=== PATIENT | male | born 1995 | race Two or more races ===

== ENCOUNTER 2023-08-08 11:03 | Inpatient (IN) ==
--- NOTE | 2023-08-08 11:14 | Emergency Department Note ---
Impression & Plan Altered mental status, Delirium due to general medical condition ED Provider Note Name: MIN VARGHESE Age: 28 Sex: Male Arrives Via: Ambulance Informant: EMS and half-way staff. Patient poor historian ED Provider: Wm Pascal MD Chief Complaint: agitation Impression: As per impressions above Medical Decision Makin-year-old male with unknown past medical history other than alcoholism arrives from [facility] half-way for evaluation of worsening agitation and hallucinations. Per EMS patient felt warm but there was never a fever documented or obtained. Patient has however been quite agitated and hallucinating at the present and for EMS. On arrival patient is relatively agitated was given Ativan with vast improvement. He was also given some IV fluids and banana bag given the alcohol history. He has been incarcerated for the last 2 weeks and reportedly had been on a benzo for about a week before being taken off it. He has been in isolation in the medical [facility] at [facility] where they note he is somewhat beyond their capabilities currently. He had been to an ER 2 days ago but discharged back to the half-way. Taken to this facility due to continued concerns. Due to altered mental status extensive workup obtained including CT head labs chest x-ray. No acute concerning findings found. Following Ativan blood pressure improved significantly. Patient seems much calmer he is answering yes no to questions. He has full range of motion head and neck without any nuchal rigidity. I do not feel patient has meningitis. Without neurodeficits per se would hold off on MRI in ER. He does not have any clear evidence of infectious etiology at this time and without an actual temperature do not feel starting antibiotics would be appropriate at this time either. Cultures were sent based on initial reports of possible fever by EMS. Patient is significantly improved however with ongoing symptoms for the last 2 weeks and exceeding abilities of [facility] half-way will need hospitalization here at this point. My suspicion is that this is still related somehow to withdrawal from likely heavy alcohol use prior to being in half-way given no other clear episode though it is a bit unusual that this is ongoing for last 2 weeks. Triage/Nursing Notes reviewed by Me Differential:Infection, hypoglycemia, electrolyte abnormalities, overdose, toxicologic, cardiac sources, intracerebral event, neurologic, trauma, as well as other pathologies. Vital Signs: reviewed and remarkable for no significant abnormalities Interventions: ativan 2mg iv, nss bolus, banana bag Labs:ED labs Reviewed by me and remarkable for no significant abnormalities Imaging:CT of the head without contrast as per my informal interpretation reveals no intracranial hemorrhage or mass effect. Confirmed by radiologist. 1 view chest x-ray as per my interpretation mild atelectasis bilateral lower lungs no infiltrate or effusion otherwise. EKG:As per my interpretation. Indication weakness. Normal sinus rhythm at 95 bpm with QTc of 435. QRS is normal. No ectopy nor ischemia. No previous for comparison. Cardiac/Tele Monitoring: Cardiac Monitoring: An Order was placed for continuous cardiac monitoring. The monitor shows a rate of 80 with a normal sinus rhythm. Consults:Dr Hinojosa hospitalist Plan: Disposition:Hospitalization. Condition: Good History of Present Illness: 28-year-old male arrives from [facility] facility. Patient has been at the facility for the last 2 weeks. He arrived heavily intoxicated and they have been managing his alcohol withdrawal there. He had been on apparently large doses of benzos up into the last few days when they were stopped. Patient's had worsening hallucinations, agitation, aggressiveness. He originally was speaking fluent Greenlandic but has not been speaking the last few days. He was taken to [facility] 48 hours ago and discharged according to security staff that arrived with patient. Unclear workup and interventions at that time. Due to worsening mental status was taken to the ER here for further evaluation. According to EMS patient felt warm though did not have a fever and route. No intervention prior to arrival. Per EMS patient has not had any benzos in the last 2 days. Patient is denying any headache, chest pain, difficulty breathing, pain through simple yes no her head none communication. No further review of systems is really able to be obtained. Past Medical History: Alcoholism. Home Medications: Multivitamin Allergies: Unknown Vitals:Blood Pressure: 156/100, Pulse 104, RR 22, T 36.7C, O2 98% on RA Physical Exam: GENERAL: Patient is agitated appearing and in mild distress. Somewhat diaphoretic RESPIRATORY: No dyspnea. Clear to auscultation and equal bilaterally. CARDIOVASCULAR: Tachy.No murmur appreciated. GASTROINTESTINAL: Abdomen soft, non-tender, no peritonitis. EXTREMITIES: Normal motion all extremities, no cyanosis, no edema. NEUROLOGIC: Patient agitated does periodically nod or answer yes/no questions, moving all extremities. No focal neurologic deficits appreciated SKIN: No rash, no jaundice, no diaphoresis. PSYCH: Unable to obtain GCS: 15 ED Course: Times/Reassessments: Significant improvement after IV fluids and Ativan. Does answer some better questions. Wm Pascal MD Past Med/Surg History Problem List (Updated 08/08/23 @ 17:22 by Wm Pascal MD) Delirium due to general medical condition (Acute) Altered mental status (Acute) Social History Smoking Status: Unknown if ever smoked Feels Safe at Home: Yes Allergies Allergies Allergy/AdvReac Type Severity Reaction Status Date / Time No Known Allergies Allergy Unverified 08/08/23 14:40 Home Meds Home Medications Medication Instructions Recorded Confirmed folic acid 1 mg tablet 1 mg PO DAILY 08/08/23 08/08/23 vitamin B complex 1 tab PO DAILY 08/08/23 08/08/23 Results & Data (ED) Vital Signs Vital Signs - 24 hr 08/08/23 11:03 08/08/23 11:03 08/08/23 12:02 Temperature 36.7 C Temperature Source Temporal Artery Scan Pulse Rate 78 79 Pulse Rate from SpO2 Sensor Respiratory Rate 18 Respiratory Effort / Characteristics Non-Labored Respiratory Depth Normal Respiratory Pattern Regular Blood Pressure 135/85 Blood Pressure Mean 101 Pulse Oximetry 98 98 Oxygen Delivery Method Room Air Room Air Sepsis Recent Fever Within 48 Hours No Sepsis New/Unexplained Change in Mental Status N/A Sepsis Action Taken by Nursing No Action Required 08/08/23 13:06 08/08/23 15:00 08/08/23 15:05 Temperature Temperature Source Pulse Rate 69 85 95 H Pulse Rate from SpO2 Sensor 68 Respiratory Rate 18 23 Respiratory Effort / Characteristics Respiratory Depth Respiratory Pattern Blood Pressure 98/67 L 129/74 Blood Pressure Mean 77 92 Pulse Oximetry 94 95 Oxygen Delivery Method Room Air Sepsis Recent Fever Within 48 Hours Sepsis New/Unexplained Change in Mental Status Sepsis Action Taken by Nursing Laboratory Data 08/08/23 12:21 08/08/23 12:21 Lab Results 08/08/23 08/08/23 Range/Units 12:21 Unknown WBC 6.35 (4.8-10.8) K/ul RBC 4.48 L (4.70-6.10) M/uL Hgb 13.6 L (14.0-18.0) g/dl Hct 39.3 L (42.0-52.0) % MCV 87.7 (80.0-100.0) fL MCH 30.4 (25.0-34.0) pg MCHC 34.6 (32.0-36.0) g/dL RDW Std Deviation 37.2 (36.4-46.3) fL RDW Coeff of Kimber 11.7 (11.5-14.5) % Plt Count 142 (130-400) K/uL MPV 12.5 H (9.4-12.4) fL Immature Gran % (Auto) 0.0 % Neut % (Auto) 70.8 % Lymph % (Auto) 23.5 % Iron % (Auto) 4.6 % Eos % (Auto) 0.3 % Baso % (Auto) 0.8 % Neut # (Auto) 4.50 (1.40-6.50) K/uL Lymph # (Auto) 1.49 (1.20-3.40) K/uL Iron # (Auto) 0.29 (0.11-0.59) K/uL Eos # (Auto) 0.02 (0.00-0.50) K/uL Baso # (Auto) 0.05 (0.00-0.20) K/uL Immature Gran # (Auto) 0.00 L (0.01-0.20) K/uL PT 12.4 H (9.0-12.0) Seconds INR 1.2 H (0.9-1.1) Sodium 140 (136-145) mmol/L Potassium 3.7 (3.5-5.1) mmol/L Chloride 107 (98-107) mmol/L Carbon Dioxide 27 (21-32) mmol/L Anion Gap 6 (3-11) BUN 11 (6-23) mg/dl Creatinine 0.63 (0.6-1.4) mg/dl Est Cr Clr Drug Dosing 192.2 ml/min Est GFR ( Amer) > 150.0 ml/min Est GFR (Non-Af Amer) 132.2 ml/min BUN/Creatinine Ratio 17.5 (10-20) Glucose 95 (70-99(Fasting)) mg/dl Lactate 1.1 (0.4-2.0) mmol/L Calcium 9.7 (8.6-10.3) mg/dl Magnesium 2.1 (1.7-2.4) mg/dl Total Bilirubin 0.9 (0.2-1.0) mg/dl Direct Bilirubin 0.2 (0-0.2) mg/dl AST 21 (13-39) U/L ALT 22 (7-52) U/L Alkaline Phosphatase 60 (34-104) U/L Total Creatine Kinase 66 (30-223) U/L Troponin I High Sens < 2.3 (0-20) pg/ml Total Protein 7.5 (6.0-8.3) gm/dl Albumin 4.2 (3.4-5.0) gm/dl Lipase 17 (11-82) U/L Procalcitonin < 0.02 (0-0.5) ng/ml Ethyl Alcohol mg/dL < 10.0 (<10.0) mg/dl SARS-CoV-2 (PCR) NEGATIVE (Negative) Influenza Type A (PCR) Negative (Neg) Influenza Type B (PCR) Negative (Neg) RSV (RT-PCR) Negative (Neg) Administered Medications Thiamine HCl 200 mg/ Sodium (Chloride) 52 mls @ 210 mls/hr IV [facility] Stop: 09/07/23 15:14 Last Infusion: 08/08/23 16:26 Dose: Infused Documented By: Admin: 08/08/23 16:07 Dose: 210 mls/hr Documented By: ERICA Folic Acid 1 mg/ Syringe 10 mls @ 5 mls[facility] Stop: 09/07/23 15:14 Last Admin: 08/08/23 16:07 Dose: 5 mls/min Documented By: ERICA Discontinued Medications Gabapentin (Gabapentin 600 Mg Tab) 1,200 mg PO NOW ONE Stop: 08/08/23 15:01 Last Admin: 08/08/23 15:37 Dose: 1,200 mg Documented By: ERICA Sodium Chloride (Nss) 1,000 mls @ 999 mls/hr IV .Q1H1M ONE Stop: 08/08/23 12:11 Last Infusion: 08/08/23 16:26 Dose: Infused Documented By: Admin: 08/08/23 12:40 Dose: 999 mls/hr Documented By: JEISON Multivitamins 10 ml/ Thiamine HCl 100 mg/ Folic Acid 1 mg/Sodium Chloride 1,011.2 mls @ 500 mls/hr IV .Q2H2M ONE Stop: 08/08/23 13:12 Last Infusion: 08/08/23 15:14 Dose: Infused Documented By: Admin: 08/08/23 13:11 Dose: 500 mls/hr Documented By: JEISON Lorazepam (Lorazepam 1 Mg/1 Ml Syr Ed Inj Use) 2 mg IV ONE STA Stop: 08/08/23 11:12 Last Admin: 08/08/23 11:20 Dose: 2 mg Documented By: RAMONITA Imaging Data Radiologist's Impression: Head CT 08/08/23 11:11 CT head/brain wo con CLINICAL HISTORY: 28 years-old Male with ams. Acutely altered mental status TECHNIQUE: Multiple axial CT images of the head were obtained without contrast. A dose lowering technique was utilized adhering to the principles of ALARA. CT DOSE: 547.75 mGy.cm COMPARISON: None. FINDINGS: No acute intracranial hemorrhage, midline shift, intracranial mass, hydrocephalus, territorial ischemia or abnormal extra-axial collection. The calvarium is intact. The paranasal sinuses, mastoid air cells, and middle ear cavities are clear. IMPRESSION: No acute intracranial abnormality. ACT 112: Negative or not required by law. The above report was generated using voice recognition software. It may contain grammatical, syntax or spelling errors. Electronically signed by: Brant Alvarez M.D. 08/08/2023 1:17 PM Chest X-Ray 08/08/23 11:12 XR chest 1V portable HISTORY: 28 years-old Male agitation, fever acute fever with altered mental status COMPARISON: None TECHNIQUE: AP view of the chest FINDINGS: Cardiac silhouette is upper limits of normal in size.. No pneumothorax, or pleural effusion. The lungs are clear. Mild mid thoracic dextroscoliosis. IMPRESSION: No acute process. ACT 112: Negative or not required by law. The above report was generated using voice recognition software. It may contain grammatical, syntax or spelling errors. Electronically signed by: Brant Alvarez M.D. 08/08/2023 11:47 AM Discharge Plan Visit Data Chief Complaint: Altered Mental Status Stated Complaint: AMS ED Provider: Wm Pascal Discharge Problem: Altered mental status, Delirium due to general medical condition Forms Stand Alone Forms: Bill[employer]rink Prescriptions Prescriptions: No Action vitamin B complex [Vitamin B-100] Tablet 1 tab PO DAILY folic acid 1 mg Tablet 1 mg PO DAILY Referrals Referrals: PCP,NO [Physician] -
[2023-08-08] MEDS: LORazepam 1 MG/1 ML SYR ED Inj Use IV STA (11:20)
--- NOTE | 2023-08-08 11:48 | XRay Report ---
XR chest 1V portable HISTORY: 28 years-old Male agitation, fever acute fever with altered mental status COMPARISON: None TECHNIQUE: AP view of the chest FINDINGS: Cardiac silhouette is upper limits of normal in size.. No pneumothorax, or pleural effusion. The lung s are clear. Mild mid thoracic dextroscoliosis. IMPRESSION: No acute process. ACT 112: Negative or not required by law. The above report was generated using voice recognition software. It may contain grammatical, syntax o r spelling errors. Electronically signed by: Brant Alvarez M.D. 08/08/2023 11:47 AM
[2023-08-08 12:38] LABS: Influenza A virus by PCR Negative (Neg); Influenza B virus by PCR Negative (Neg); RSV by PCR Negative (Neg); SARS CoV2 RNA(COVID-19) Ceph NEGATIVE (Negative)
[2023-08-08] MEDS: SODIUM CHLORIDE 0.9% 1,000 ML IV ONE (12:40)
[2023-08-08 12:41] LABS: Basophils # (auto) 0.05 K/uL (0.00-0.20); Basophils % (auto) 0.8 %; Eosinophils # (auto) 0.02 K/uL (0.00-0.50); Eosinophils % (auto) 0.3 %; Hematocrit (blood only) 39.3 % (42.0-52.0); Hemoglobin 13.6 g/dl (14.0-18.0); Lymphocytes # (auto) 1.49 K/uL (1.20-3.40); Lymphocytes % (auto) 23.5 %; Mean Corpuscular Hemoglobin 30.4 pg (25.0-34.0); Mean Corpuscular Hgb Conc 34.6 g/dL (32.0-36.0); Mean Corpuscular Volume 87.7 fL (80.0-100.0); Mean Platelet Volume 12.5 fL (9.4-12.4); Monocytes # (auto) 0.29 K/uL (0.11-0.59); Monocytes % (auto) 4.6 %; Neutrophils % (auto) 70.8 %; Platelet Count 142 K/uL (130-400); RDW Coefficient of Variation 11.7 % (11.5-14.5); RDW Standard Deviation 37.2 fL (36.4-46.3); Red Blood Count 4.48 M/uL (4.70-6.10); White Blood Count 6.35 K/ul (4.8-10.8)
[2023-08-08 12:57] LABS: Alanine Aminotransferase 22 U/L (7-52); Albumin Level 4.2 gm/dl (3.4-5.0); Alkaline Phosphatase 60 U/L (34-104); Anion Gap 6 (3-11); Aspartate Aminotransferase 21 U/L (13-39); BUN Creatinine Ratio 17.5 (10-20); Bilirubin Direct 0.2 mg/dl (0-0.2); Bilirubin,Total 0.9 mg/dl (0.2-1.0); Blood Urea Nitrogen 11 mg/dl (6-23); Calcium 9.7 mg/dl (8.6-10.3); Carbon Dioxide 27 mmol/L (21-32); Chloride 107 mmol/L (98-107); Creatine Kinase 66 U/L (30-223); Creatinine Clr Calc Pharmacy 192.2 ml/min; Est GFR (African American) > 150.0 ml/min; Est GFR (Non-African American) 132.2 ml/min; Glucose 95 mg/dl (70-99(Fasting)); Lipase 17 U/L (11-82); Magnesium 2.1 mg/dl (1.7-2.4); Potassium 3.7 mmol/L (3.5-5.1); Sodium 140 mmol/L (136-145); Total Protein 7.5 gm/dl (6.0-8.3)
[2023-08-08 13:04] LABS: Troponin I High Sensitivity < 2.3 pg/ml (0-20)
[2023-08-08] MEDS: MULTI-VITAMIN INFUSION 10 ML, THIAMINE HCL 100 MG, FOLIC ACID 1 MG in SODIUM CHLORIDE 0... IV ONE (13:11)
[2023-08-08 13:18] LABS: INR 1.2 (0.9-1.1); Prothrombin Time 12.4 Seconds (9.0-12.0)
--- NOTE | 2023-08-08 13:19 | CT Scan Report ---
CT head/brain wo con CLINICAL HISTORY: 28 years-old Male with ams. Acutely altered mental status TECHNIQUE: Multiple axial CT images of the head were obtained without contrast. A dose lowering tech nique was utilized adhering to the principles of ALARA. CT DOSE: 547.75 mGy.cm COMPARISON: None. FINDINGS: No acute intracranial hemorrhage, midline shift, intracranial mass, hydrocephalus, territorial ischem ia or abnormal extra-axial collection. The calvarium is intact. The paranasal sinuses, mastoid air cells, and middle ear cavities are clear . IMPRESSION: No acute intracranial abnormality. ACT 112: Negative or not required by law. The above report was generated using voice recognition software. It may contain grammatical, syntax o r spelling errors. Electronically signed by: Brant Alvarez M.D. 08/08/2023 1:17 PM
[2023-08-08] MEDS ORDERED: Ativan IV Alcohol Withdrawal--Active Protocol IV PRN (15:00)
[2023-08-08] MEDS ORDERED: LORazepam 3 MG in SYRINGE 1.5 ML IV PRN (15:00)
[2023-08-08] MEDS ORDERED: GABAPENTIN 1200MG ALCOHOL WITHDRAWAL LOAD PO STA (15:00)
[2023-08-08] MEDS ORDERED: LORazepam 1 MG in SYRINGE 0.5 ML IV PRN (15:00)
[2023-08-08] MEDS ORDERED: ONDANSETRON INJ 2 MG/ML 2 ML VIAL IV PRN (15:02)
[2023-08-08] MEDS ORDERED: ALUMINUM/MAGNESIUM SUSP 30 ML UDC PO PRN (15:02)
--- NOTE | 2023-08-08 15:19 | History & Physical Report ---
Date of Service August 08, 2023 Assessment & Plan (1) Altered mental status: Plan Toxic versus metabolic encephalopathy History of alcohol abuse Abrupt discontinuation of diazepam recently Alc vs benzos withdrawal Patient was being treated for alcohol abuse with folic acid/thiamine/meclizine/diazepam 10 mg twice daily at a [facility] [place] [facility]. Patient was [place] to [facility] 2 [facility] ago at which point his diazepam was stopped abruptly. Patient was continuing on the thiamine and folic acid. Patient was evaluated at [facility] on Thursday for AMS at which point alcohol level was negative, benzos was positive, CT head and CT of abdomen pelvis was negative per RN at [facility]. Admitting CT head and CXR with no acute finding. Will get toxicology screen, monitor for fever -- consider LP and antibiotic if febrile.Will send blood culture. Per ED physician, there was concern of warmth noted by EMS/temperature was never recorded, temperature recorded multiple times in the ED was afebrile. LINDSAY S protocol, IV thiamine, IV folic acid, IV fluid with dextrose. N.p.o. until mentation improves, clear liquid diet then advance diet as tolerated as mentation improves. Continue telemetry monitoring. DVT prophylaxis: Heparin subcu Full code Further medication/past history/current history to be elucidated by oncoming provider once patient is more awake. History of Present Illness Chief Complaint: ams Primary Care Provider: Des Noble, DO 28-year-old male with unknown PMH but was being managed for alcohol abuse [facility] [place] [facility]. Patient is altered at bedside exam, information gathered from guards at bedside, ER physician, chart review, phone call with medical [facility]/spoke with patient's nurse at [phone]. Patient apparently was being treated for alcohol abuse with thiamine/folic acid/meclizine/diazepam 10 mg twice daily at prior [facility] and was moved to this current [facility] on July 23. At this point his diazepam and meclizine were stopped. He was noted to be confused/altered on Thursday, sent to [facility] where they did found benzos positive on toxicology screen/alcohol was negative/CT abdomen pelvis and CT head was negativehe was sent back to [facility] with no further medical recommendation per patient's RN at [facility]. Patient was noted to be somewhat confused yesterday/progressive and worsened today and hence sent to our ED. At bedside exam, patient was able to stick his tongue out, was drowsy, could not give any history, denied any pain. Tremulousness noted. Per RN at medical [facility], patient's current medications are thiamine and folic acid only. Full code since patient is altered and cannot discuss CODE STATUS with him, oncoming provider to confirm with the patient tomorrow. Following day provider to explore more history from the patient including past medical history/current history/medications once the patient is more awake. We will put him n.p.o. until his mentation improves, normal saline with D5 [give thiamine before IVF with D5], can put him on clear liquid diet/advance diet as tolerated once mentation improves. Allergies Allergy/AdvReac Type Severity Reaction Status Date / Time No Known Allergies Allergy Unverified 08/08/23 14:40 Home Medications Medication Instructions Recorded Confirmed Type folic acid 1 mg tablet 1 mg PO DAILY 08/08/23 08/08/23 History vitamin B complex 1 tab PO DAILY 08/08/23 08/08/23 History Past Med/Surg History Problem List (Updated 08/08/23 @ 15:16 by Neptali Hinojosa MD) Altered mental status Social History Smoking Status: Unknown if ever smoked Feels Safe at Home: Yes Review of Systems Review of Systems: Negative otherwise mentioned in HPI. Physical Exam Physical Exam: GENERAL: drowsy, tremulous, RA HEENT: No pallor, no icterus. Pupils equal, round and reactive to light. Oral mucosa dry. NECK: No JVD, no neck masses. HEART: S1 and S2 heard. Regular rate and rhythm. Tachy noted. No murmur, no gallop. RESPIRATORY SYSTEM: Normal AP diameter. No accessory muscle use. No wheezing, no crackles. ABDOMEN: Soft, bowel sounds present, no facial grimacing, no distention. CENTRAL NERVOUS SYSTEM: No facial droop. can't cooperate much, seen moving his extremities during exam EXTREMITIES: No edema, no erythema seen. Results & Data Results & Data Vital Signs (Past 12 Hours) Vital Signs Temp Pulse Resp BP Pulse Ox O2 Del Method 08/08/23 13:06 69 18 98/67 L 94 08/08/23 12:02 79 08/08/23 11:03 98 Room Air 08/08/23 11:03 36.7 C 78 18 135/85 98 Room Air
[2023-08-08] MEDS: GABAPENTIN 600 MG TAB PO ONE (15:37)
[2023-08-08] MEDS: THIAMINE HCL 200 MG in SODIUM CHLORIDE 0.9% 50 ML IV SCH (16:07)
[2023-08-08] MEDS: FOLIC ACID 1 MG in SYRINGE 9.8 ML IV SCH (16:07)
[2023-08-08] MEDS: LORazepam 1 MG in SYRINGE 0.5 ML IV PRN (17:58)
[2023-08-08] MEDS: D5W AND NSS 1,000 ML IV SCH (19:06)
[2023-08-08 19:38] LABS: Appearance Urine Clear (Clear); Bilirubin Urine Negative (Negative); Blood Urine Negative (Negative); Color Urine Yellow; Glucose Urine UA Negative (Negative); Ketones Urine 3+ (Negative); Leukocyte Esterase Urine Negative (Negative); Nitrite Urine Negative (Negative); Protein Urine Negative (Negative); Specific Gravity Urine 1.016 (1.000-1.030); Urobilinogen Urine Negative (Negative)
[2023-08-08 20:03] LABS: Amphetamines+Metham, Urine Neg (Neg); Barbiturates, Urine Neg (Neg); Benzodiazepine, Urine Pos (Neg); Cocaine, Urine Neg (Neg); Fentanyl, Urine Neg (Neg); MDMA (Ecstacy), Urine Neg (Neg); Marijuana, Urine Neg (Neg); Methadone, Urine Neg (Neg); Opiate, Urine Neg (Neg); Phencyclidine, Urine Neg (Neg)
[2023-08-08] MEDS: GABAPENTIN 600 MG TAB PO SCH (22:13)
[2023-08-09 06:59] LABS: Hemoglobin 14.2 g/dl (14.0-18.0); Mean Corpuscular Hemoglobin 30.5 pg (25.0-34.0); Mean Corpuscular Hgb Conc 34.6 g/dL (32.0-36.0); Mean Corpuscular Volume 88.2 fL (80.0-100.0); Mean Platelet Volume 11.9 fL (9.4-12.4); Platelet Count 151 K/uL (130-400); RDW Coefficient of Variation 11.7 % (11.5-14.5); RDW Standard Deviation 37.8 fL (36.4-46.3); Red Blood Count 4.65 M/uL (4.70-6.10); White Blood Count 6.72 K/ul (4.8-10.8)
[2023-08-09 07:27] LABS: Alanine Aminotransferase 19 U/L (7-52); Albumin Level 3.8 gm/dl (3.4-5.0); Alkaline Phosphatase 60 U/L (34-104); Anion Gap 4 (3-11); Aspartate Aminotransferase 18 U/L (13-39); BUN Creatinine Ratio 10.5 (10-20); Bilirubin Direct 0.3 mg/dl (0-0.2); Bilirubin,Total 1.1 mg/dl (0.2-1.0); Blood Urea Nitrogen 6 mg/dl (6-23); Calcium 9.3 mg/dl (8.6-10.3); Carbon Dioxide 28 mmol/L (21-32); Chloride 108 mmol/L (98-107); Creatinine Clr Calc Pharmacy 210.5 ml/min; Est GFR (African American) > 150.0 ml/min; Est GFR (Non-African American) 137.8 ml/min; Glucose 97 mg/dl (70-99(Fasting)); Phosphorus 3.9 mg/dl (2.5-4.9); Potassium 3.9 mmol/L (3.5-5.1); Sodium 140 mmol/L (136-145); Total Protein 7.2 gm/dl (6.0-8.3)
[2023-08-09 08:52] LABS: Magnesium 2.2 mg/dl (1.7-2.4)
--- NOTE | 2023-08-09 14:42 | Electrocardiogram Report ---
Test Reason : Blood Pressure : / mmHG Vent. Rate : 078 BPM Atrial Rate : 078 BPM P-R Int : 146 ms QRS Dur : 084 ms QT Int : 382 ms P-R-T Axes : 026 004 -09 degrees QTc Int : 435 ms Normal sinus rhythm T wave abnormality, consider inferior ischemia Abnormal ECG No previous ECGs available Confirmed by Jerardo Jon ([id number]) on 08/09/2023 2:42:16 PM Referred By: Des Noble Confirmed By:Jerardo Jon
--- NOTE | 2023-08-09 14:44 | Neurology Consultation ---
Date of Consultation August 09, 2023 Assessment & Plan (1) Altered mental status: Altered mental status related to delirium, possibly alcohol-related encephalopathy, cannot exclude intermittent subclinical seizures. Plan Recommend MRI of the brain with and without contrast. Recommend an EEG. Continue supportive care. Continue continue withdrawal precautions, continue B12 and folate Telehealth Consultation Telehealth Information Telehealth Information: I performed this visit using a real-time telehealth connection between my location and the patients location ([facility]). After connecting through interactive tele-video, patient was identified by name and date of and/or wristband check.Patient (or authorized healthcare repres entative) was informed that this was a telemedicine visit and it was being conducted confidentially over secure lines. My office door was closed and no one else was present in the room with me.Patient (or authorized healthcare ambulatory services representative) provided consent to proceed with the visit, expressed an understanding of privacy and security of the telemedicine visit, and gave permission to have a hospital ambulatory services representative in the room in order to assist with the visit and to conduct portions of the visit, as needed. I informed the patient (or authorized healthcare ambulatory services representative) that I reviewed their record and presented the opportunity for them to ask any questions regarding the visit today. The patient agreed to participate. History of Present Illness Reason for Consultation: [facility] Requesting Physician: Dr Alas Attending Physician: Gigi Pina MD History of Present Illness 28-year-old male patient with PMH of alcohol abuse and benzodiazepine abuse, the patient was recently incarcerated [address] when he noted to have significant withdrawal, he was transferred to a medical facility where he received thiamine folate and benzodiazepines (Valium). The patient was later transferred to a regular incarceration facility where he was noticed to have bizarre behavior, laughing inappropriately, did not appear to be coherent. He was later sent to the hospital. In the ED. His alcohol was negative and his urine drug screen was positive for benzodiazepines. He is unable to provide history, he is awake alert he is oriented to time and place, says that he does not remember why he is in the hospital, does not report any weakness or numbness. There is no zaihra reports of loss of consciousness. No reported seizure activity. Allergies Allergy/AdvReac Type Severity Reaction Status Date / Time No Known Allergies Allergy Unverified 08/08/23 14:40 Home Medications Medication Instructions Recorded Confirmed Type folic acid 1 mg tablet 1 mg PO DAILY 08/08/23 08/08/23 History vitamin B complex 1 tab PO DAILY 08/08/23 08/08/23 History Patient History Social History Smoking Status: Never smoker Hx Alcohol Use: Yes Hx Substance Use: No Preferred Language: Mongolian Communication Ability: Effective Data Entry Clerk Required: No Beliefs That Will Affect Care: None Current Living Situation: Other Current Living Situation Comment: Incarcerated individual Feels Safe at Home: Yes Review of Systems Unable to obtain due to cognitive deficits Physical Exam General Constitutional: Appearance normally developed Head and face: normocephalic and atraumatic Eyes: no ptosis, no anisocoria, and no dysconjugate gaze Respiratory: normal effort Cardiovascular: regular rhythm and regular rate Abdomen: non distended Skin: no rashes, lesions, or ulcers noted Psychiatric: poor judgement and insight, normal mood. NEUROLOGIC EXAMINATION: Mental Status:alert, oriented to time, place, person decreased knowledge of current events y, normal attention span, normal concentration, normal language and normal fund of knowledge Cranial Nerves: CN 2 - no visual defect on confrontation and pupils round, equal, reactive to light CN 3, 4, 6 - extra-ocular movements intact and no nystagmus CN 5 - facial sensation intact CN 7 - no facial asymmetry CN 8 - intact hearing CN 9, 10 - palate symmetric, normal gag CN 11 - good shoulder shrug CN 12 - tongue midline MOTOR: Strength was at least antigravity throughout, Pronator drift was absent and There were no abnormal movements SENSATION: intact and symmetric to pinprick, light touch, vibration and joint position GAIT:deferred COORDINATION: no ataxia with finger to nose testing and heel to kumar testing REFLEXES: cannot assess over telemedicine Results & Data Vital Signs (Past 12 Hours) Vital Signs Temp Pulse Resp BP Pulse Ox O2 Del Method 08/09/23 11:46 36.9 C 76 17 122/77 98 Room Air 08/09/23 07:53 37.1 C 85 16 136/86 97 Room Air 08/09/23 04:43 36.5 C 73 16 95/61 L 95 Room Air Laboratory Results Laboratory Results - last 24 hr 08/08/23 08/08/23 08/09/23 19:40 Unknown 06:37 WBC 6.72 RBC 4.65 L Hgb 14.2 Hct 41.0 L MCV 88.2 MCH 30.5 MCHC 34.6 RDW Std Deviation 37.8 RDW Coeff of Kimber 11.7 Plt Count 151 MPV 11.9 Sodium 140 Potassium 3.9 Chloride 108 H Carbon Dioxide 28 Anion Gap 4 BUN 6 Creatinine 0.57 L Est Cr Clr Drug Dosing 210.5 Est GFR ( Amer) > 150.0 Est GFR (Non-Af Amer) 137.8 BUN/Creatinine Ratio 10.5 Glucose 97 Calcium 9.3 Phosphorus 3.9 Magnesium 2.2 Total Bilirubin 1.1 H Direct Bilirubin 0.3 H AST 18 ALT 19 Alkaline Phosphatase 60 Total Protein 7.2 Albumin 3.8 Urine Color Yellow Urine Appearance Clear Urine pH 6.0 Ur Specific [place] 1.016 Urine Protein Negative Urine Glucose (UA) Negative Urine Ketones 3+ H Urine Blood Negative Urine Nitrite Negative Urine Bilirubin Negative Urine Urobilinogen Negative Ur Leukocyte Esterase Negative Nasal Screen MRSA (PCR) Negative Urine Opiates Screen Neg Ur Methadone, Qual Neg Urine Fentanyl Screen Neg Urine Barbiturates Neg Ur Phencyclidine (PCP) Neg U Amphetamin/Meth Scrn Neg MDMA (Ecstasy) Screen Neg U OH-Alprazolam Confrm Pending U Benzodiazepines Scrn Pos H 7-Amino Clonazepam Pending Ur Nordiazepam Confirm Pending U OH-ethylflurazepam Pending U Lorazepam Cnf GC/MS Pending U Oxazepam Confm GC/MS Pending Ur Temazepam Confirm Pending U OH-Triazolam Confirm Pending U OH-Midazolam Confirm Pending Ur Cocaine Metabolite Neg U Marijuana (THC) Screen Neg Drug Screen Comment Pending Diagnostic Findings CT scan of the head shows no acute intracranial abnormalities
--- NOTE | 2023-08-09 16:14 | Hospitalist Progress Note ---
Date of Service August 09, 2023 Assessment & Plan (1) Altered mental status: Plan Toxic versus metabolic encephalopathy History of alcohol abuse Abrupt discontinuation of diazepam recently Alc vs benzos withdrawal Patient was being treated for alcohol abuse with folic acid/thiamine/meclizine/diazepam 10 mg twice daily at a prior retirement facility. Patient was transferred to current retirement facility 2 weeks ago at which point his diazepam was stopped abruptly. Patient was continuing on the thiamine and folic acid. Patient was evaluated at [facility] on Thursday for AMS at which point alcohol level was negative, benzos was positive, CT head and CT of abdomen pelvis was negative per RN at medical retirement facility. Admitting CT head and CXR with no acute finding. Will get toxicology screen, monitor for fever -- consider LP and antibiotic if febrile.Will send blood culture. Per ED physician, there was concern of warmth noted by EMS/temperature was never recorded, temperature recorded multiple times in the ED was afebrile. LINDSAY S protocol, IV thiamine, IV folic acid, IV fluid with dextrose. N.p.o. until mentation improves, clear liquid diet then advance diet as tolerated as mentation improves. Continue telemetry monitoring. 08/08 unclear etiology no clear infectious etiology at this point afebrile Neurologist consulted Brain MRI EEG supportive care DVT prophylaxis: Heparin subcu Full code Admission and Anticipated Discharge Date Admission Date: August 08, 2023 Subjective Follow-up for mental status, etc. Seen resting in bed, comfortable, not in distress Care Home center officers at the bedside as well as RN Awake and alert, oriented times person and time Answer simple questions appropriately but always says I cannot remember Seems to be easily distracted States he feels fine overall No headache, dizziness, nausea vomiting, chest pain, shortness of breath No other new symptoms Review of Systems Review of Systems: all noted and negative except for above Physical Exam Physical Exam: General- oriented x 2, not in distress, speaks in sentences with no effort or accessory muscle use Eyes- anicteric Neck- no JVD Lungs- clear breath sounds bilaterally, no rales/wheezes Heart- normal rate, regular rhythm; no murmurs Abdomen- normal bowel sounds, nondistended, soft, nontender Extremities- no pretibial edema, no calf tenderness Neuro- alert, oriented x2; somewhat confused, forgetful , no gross focal neurologic deficits Psych- speaks in soft voice, mostly flat affect then suddenly smiles, poor eye contact, easily distracted Skin- warm & dry Results & Data Results & Data Vital Signs (Past 12 Hours) Vital Signs Temp Pulse Resp BP Pulse Ox O2 Del Method 08/09/23 15:58 36.8 C 82 17 126/82 96 Room Air 08/09/23 11:46 36.9 C 76 17 122/77 98 Room Air 08/09/23 07:53 37.1 C 85 16 136/86 97 Room Air 08/09/23 04:43 36.5 C 73 16 95/61 L 95 Room Air all noted and reviewed including below
[2023-08-09] MEDS: GABAPENTIN 600 MG TAB PO SCH (16:18)
[2023-08-09] MEDS: SODIUM CHLORIDE 0.9% 1,000 ML IV SCH (17:45)
[2023-08-09] MEDS: THIAMINE HCL 500 MG in SODIUM CHLORIDE 0.9% 50 ML IV SCH (17:46)
[2023-08-10] MEDS: ACETAMINOPHEN 325 MG TAB PO PRN (02:16)
[2023-08-10] MEDS: LORazepam 2 MG in SYRINGE 1 ML IV PRN (03:11)
[2023-08-10] MEDS: OLANZapine 10 MG/2.1 ML SDV IM STA (15:45)
[2023-08-10] MEDS: OLANZapine 10 MG/2.1 ML SDV IM ONE (15:46)
[2023-08-10] MEDS: GABAPENTIN 600 MG TAB PO SCH (18:01)
--- NOTE | 2023-08-10 18:09 | Hospitalist Progress Note ---
Date of Service August 10, 2023 Assessment & Plan (1) Altered mental status: Plan Toxic versus metabolic encephalopathy History of alcohol abuse Abrupt discontinuation of diazepam recently Alc vs benzos withdrawal Patient was being treated for alcohol abuse with folic acid/thiamine/meclizine/diazepam 10 mg twice daily at a prior retirement facility. Patient was transferred to current retirement facility 2 weeks ago at which point his diazepam was stopped abruptly. Patient was continuing on the thiamine and folic acid. Patient was evaluated at [facility] on Thursday for AMS at which point alcohol level was negative, benzos was positive, CT head and CT of abdomen pelvis was negative per RN at medical retirement facility. Admitting CT head and CXR with no acute finding. Will get toxicology screen, monitor for fever -- consider LP and antibiotic if febrile.Will send blood culture. Per ED physician, there was concern of warmth noted by EMS/temperature was never recorded, temperature recorded multiple times in the ED was afebrile. LINDSAY S protocol, IV thiamine, IV folic acid, IV fluid with dextrose. N.p.o. until mentation improves, clear liquid diet then advance diet as tolerated as mentation improves. Continue telemetry monitoring. 08/08 unclear etiology no clear infectious etiology at this point afebrile Neurologist consulted Brain MRI EEG supportive care 08/09 Remains confused Serologies reviewed, negative so far Declining brain MRI Discussed with neurologist, continue gabapentin taper for now Continue thiamine IV every 8 hours Became combative in the afternoon, requiring Zyprexa Monitor closely DVT prophylaxis: Heparin subcu Full code Admission and Anticipated Discharge Date Admission Date: August 08, 2023 Subjective Follow-up for altered mental status, etc. Seen with police officer booking at bedside Patient sitting up in bed, not in distress, awake and alert Oriented x 1-2, mostly confused, speaks in a soft voice, states he feels fine Denies chest pain, headache, dizziness No shortness of breath, abdominal pain No other new symptoms Still declining to have a brain MRI performed Not given clear reasons why he is refusing Explained importance to undergo brain MRI to assist with diagnosis and treatment Patient still declined Review of Systems Review of Systems: all noted and negative except for above Physical Exam Physical Exam: General- oriented 1-2, not in distress, speaks in sentences with no effort or accessory muscle use Eyes- anicteric Neck- no JVD Lungs- clear breath sounds bilaterally, No crackles Heart- normal rate, regular rhythm; no murmurs Abdomen- normal bowel sounds, nondistended, soft, nontender Extremities- no pretibial edema, no calf tenderness Neuro- alert, oriented x 1-2;confused, no new gross focal neurologic deficits Skin- warm & dry Results & Data Results & Data Vital Signs (Past 12 Hours) Vital Signs Temp Pulse Resp BP Pulse Ox O2 Del Method 08/10/23 15:52 36.9 C 86 18 120/81 96 Room Air 08/10/23 11:30 37.1 C 98 H 18 135/83 96 Room Air 08/10/23 07:53 36.4 C L 95 H 18 129/86 95 Room Air all noted and reviewed including below
--- NOTE | 2023-08-11 02:04 | XRay Report ---
Exam(s): XR KUB EXAM: XR Abdomen, 1 View CLINICAL HISTORY: Reason for exam: mri. TECHNIQUE: Frontal supine view of the abdomen/pelvis. COMPARISON: No relevant prior studies available. FINDINGS: Gastrointestinal tract: Mild fecal retention, correlate for constipation. No dilation. Bones/joints: Unremarkable. No acute fracture. IMPRESSION: Mild fecal retention, correlate for constipation. Electronically signed by: Venancio Louis MD 08/11/23 02:03 AM
--- NOTE | 2023-08-11 15:03 | Hospitalist Progress Note ---
Date of Service August 11, 2023 Assessment & Plan (1) Altered mental status: Plan Toxic versus metabolic encephalopathy History of alcohol abuse Abrupt discontinuation of diazepam recently Alc vs benzos withdrawal Patient was being treated for alcohol abuse with folic acid/thiamine/meclizine/diazepam 10 mg twice daily at a prior nursing home facility. Patient was transferred to current nursing home facility 2 weeks ago at which point his diazepam was stopped abruptly. Patient was continuing on the thiamine and folic acid. Patient was evaluated at [facility] on Thursday for AMS at which point alcohol level was negative, benzos was positive, CT head and CT of abdomen pelvis was negative per RN at medical nursing home facility. Admitting CT head and CXR with no acute finding. Will get toxicology screen, monitor for fever -- consider LP and antibiotic if febrile.Will send blood culture. Per ED physician, there was concern of warmth noted by EMS/temperature was never recorded, temperature recorded multiple times in the ED was afebrile. LINDSAY S protocol, IV thiamine, IV folic acid, IV fluid with dextrose. N.p.o. until mentation improves, clear liquid diet then advance diet as tolerated as mentation improves. Continue telemetry monitoring. 08/08 unclear etiology no clear infectious etiology at this point afebrile Neurologist consulted Brain MRI EEG supportive care 08/09 Remains confused Serologies reviewed, negative so far Declining brain MRI Discussed with neurologist, continue gabapentin taper for now Continue thiamine IV every 8 hours Became combative in the afternoon, requiring Zyprexa Monitor closely 08/10 Patient clinically improving today Oriented x 2-3 now, can answer more questions appropriately After lengthy discussion, patient agreeable with brain MRI and EEG However, patient refused brain MRI again when he was brought down to the MRI room EEG performed, awaiting results Has completed 2 days of IV thiamine 500 mg IV every 8 hours, transition to 250 mg IV daily x 5 days, then oral thiamine and multivitamin thereafter Should also finish gabapentin protocol today Will benefit from psychiatric evaluation at the nursing home center, patient expressing that he has been having severe anxiety at the nursing home center, but denies depression DVT prophylaxis: Heparin subcu Full code Admission and Anticipated Discharge Date Admission Date: August 08, 2023 Subjective Follow-up for altered mental status, etc. Seen with nursing home officers at the bedside during exam Patient seen sitting up in bed, comfortable, awake and alert Oriented x 2-3, answering most questions appropriately States he feels fine today overall Denies headache, dizziness, neck pain, shortness of breath, chest pain, fevers or chills No other new symptoms Review of Systems Review of Systems: all noted and negative except for above Physical Exam Physical Exam: General- oriented x 2-3, not in distress, speaks in sentences with no effort or accessory muscle use Eyes- anicteric Neck- no JVD Lungs- clear breath sounds bilaterally, no rales/wheezes Heart- normal rate, regular rhythm; no murmurs Abdomen- normal bowel sounds, nondistended, soft, nontender Extremities- no pretibial edema, no calf tenderness Neuro- alert, oriented x 2-3, no New gross focal neurologic deficits Skin- warm & dry Results & Data Results & Data Vital Signs (Past 12 Hours) Vital Signs Temp Pulse Resp BP Pulse Ox O2 Del Method 08/11/23 11:50 36.8 C 109 H 18 132/82 96 Room Air 08/11/23 07:34 36.7 C 72 18 119/63 97 Room Air all noted and reviewed including below
[2023-08-11 16:21] LABS: Basophils # (auto) 0.06 K/uL (0.00-0.20); Basophils % (auto) 0.8 %; Eosinophils # (auto) 0.08 K/uL (0.00-0.50); Hematocrit (blood only) 41.7 % (42.0-52.0); Hemoglobin 14.3 g/dl (14.0-18.0); Immature Granulocytes # (auto) 0.02 K/uL (0.01-0.20); Immature Granulocytes % (auto) 0.3 %; Lymphocytes # (auto) 2.24 K/uL (1.20-3.40); Lymphocytes % (auto) 28.3 %; Mean Corpuscular Hemoglobin 29.7 pg (25.0-34.0); Mean Corpuscular Hgb Conc 34.3 g/dL (32.0-36.0); Mean Corpuscular Volume 86.5 fL (80.0-100.0); Mean Platelet Volume 12.5 fL (9.4-12.4); Monocytes # (auto) 0.52 K/uL (0.11-0.59); Monocytes % (auto) 6.6 %; Neutrophils # (auto) 4.99 K/uL (1.40-6.50); Platelet Count 167 K/uL (130-400); RDW Coefficient of Variation 11.8 % (11.5-14.5); RDW Standard Deviation 36.9 fL (36.4-46.3); Red Blood Count 4.82 M/uL (4.70-6.10); White Blood Count 7.91 K/ul (4.8-10.8)
[2023-08-11 16:40] LABS: Anion Gap 6 (3-11); BUN Creatinine Ratio 12.1 (10-20); Blood Urea Nitrogen 8 mg/dl (6-23); Calcium 9.1 mg/dl (8.6-10.3); Carbon Dioxide 25 mmol/L (21-32); Chloride 108 mmol/L (98-107); Creatinine Clr Calc Pharmacy 185.3 ml/min; Est GFR (African American) > 150.0 ml/min; Est GFR (Non-African American) 129.7 ml/min; Glucose 108 mg/dl (70-99(Fasting)); Potassium 3.8 mmol/L (3.5-5.1); Sodium 139 mmol/L (136-145)
[2023-08-11] MEDS: THIAMINE HCL 250 MG in SODIUM CHLORIDE 0.9% 50 ML IV ONE (20:11)
[2023-08-12] MEDS: GABAPENTIN 600 MG TAB PO SCH (05:08)
[2023-08-12] MEDS: THIAMINE HCL 250 MG in SODIUM CHLORIDE 0.9% 50 ML IV SCH (09:08)
[2023-08-12] MEDS: MULTIVITAMIN TAB PO SCH (09:08)
[2023-08-12] MEDS: CALAMINE/PRAMOXINE LOTION 180 APPLN/180 ML BTL EXT PRN (11:33)
[2023-08-12 13:38] LABS: 7-Aminoclonaz, Confirm NEGATIVE ng/mL (<25); Hydro-Alp Ur, GC/MS NEGATIVE ng/mL (<25); Hydroxyethylflurazepam, Conf NEGATIVE ng/mL (<50); Hydroxymidazolam Ur, GC/MS NEGATIVE ng/mL (<50); Hydroxytriazolam NEGATIVE ng/mL (<50); Lorazepam, Ur GC/MS 308 ng/mL (<50); Nordiazepam, Confirm 61 ng/mL (<50); Oxazepam Ur, GC/MS 120 ng/mL (<50); Temazepam, Confirm 65 ng/mL (<50)
--- NOTE | 2023-08-12 15:03 | Hospitalist Progress Note ---
Date of Service August 12, 2023 Assessment & Plan (1) Altered mental status: Plan Toxic encephalopathy History of alcohol abuse Possible benzo diazepam withdrawal Possible Wernicke's encephalopathy Patient was being treated for alcohol abuse with folic acid/thiamin e/meclizine/diazepam 10 mg twice daily at a prior [place] [facility] facility. Patient was [place] to [facility] [place] [facility] 2 [facility] ago at which point his diazepam was stopped abruptly. Patient was continuing on the thiamine and folic acid. Patient was evaluated at [facility] on Thursday for AMS at which point alcohol level was negative, benzos was positive, CT head and CT of abdomen pel vis was negative per RN at medical [place] facility. Admitting CT head and CXR with no acute finding. Patient clinically improving on frequent reorientation, alcohol withdrawal protocol and IV thiamine Patient refused brain MRI despite multiple attempts EEG pending Seizure precautions DVT prophylaxis: Heparin subcu Full code Dispositioncurrently on IV thiamine; EEG is pending. Possible DC in next few days Please note the above document was generated using voice recognition software. It may contain grammatical, syntax or spelling errors. Any formal questions or concerns about the content, text or information contained within the body of this dictation should be directly addressed to the provider for clarification Admission and Anticipated Discharge Date Admission Date: August 08, 2023 Subjective Patient seen and examined at bedside. He is alert and oriented to self, place and person. He denies any pain or discomfort. Vital signs stable; no significant events overnight Review of Systems Review of Systems: All systems reviewed & are unremarkable except as noted in Subjective Physical Exam Physical Exam: General- oriented x3, not in distress, speaks in sentences with no effort or accessory muscle use Eyes- anicteric Neck- no JVD Lungs- clear breath sounds bilaterally, no rales/wheezes Heart- normal rate, regular rhythm; no murmurs Abdomen- normal bowel sounds, nondistended, soft, nontender Extremities- no pretibial edema, no calf tenderness Neuro- alert, oriented x 3, no New gross focal neurologic deficits Skin- warm & dry Results & Data Results & Data Vital Signs (Past 12 Hours) Vital Signs Temp Pulse Resp BP Pulse Ox O2 Del Method 08/12/23 11:01 36.7 C 70 20 117/74 96 Room Air 08/12/23 07:20 36.4 C L 66 19 115/79 99 Room Air 08/12/23 03:55 36.4 C L 63 12 111/75 97 Room Air
--- NOTE | 2023-08-13 06:26 | Electroencephalogram ---
EEG Procedure Note Date of Service August 11, 2023 Start / End Times Start Time: 10:48 End Time: 11:[address] Gigi Swan History A 28 year old male with altered mental status. EEG performed for evaluation of epileptiform activity. Home Medication List Medication Instructions Recorded Confirmed Type folic acid 1 mg tablet 1 mg PO DAILY 08/08/23 08/08/23 History vitamin B complex 1 tab PO DAILY 08/08/23 08/08/23 History Inpatient Medication List Calamine/Pramoxine (Calamine/Pramoxine Lotion 180 Appln/180 Ml Btl) 1 appln EXT BID PRN PRN Reason: rash Stop: 09/11/23 09:29 Last Admin: 08/12/23 11:33 Dose: 1 appln Documented By: MICHAEL Folic Acid 1 mg/ Syringe 10 mls @ 5 mls/min IV QAM [facility] Stop: 09/07/23 15:14 Last Admin: 08/12/23 09:09 Dose: 5 mls/min Documented By: Admin: 08/11/23 08:05 Dose: 5 mls/min Documented By: Admin: 08/10/23 08:41 Dose: 5 mls/min Documented By: Admin: 08/09/23 08:31 Dose: 5 mls/min Documented By: Admin: 08/08/23 16:07 Dose: 5 mls/min Documented By: ERICA Thiamine HCl 250 mg/ Sodium (Chloride) 52.5 mls @ 210 mls/hr IV QAM [facility] Stop: 09/11/23 08:59 Last Infusion: 08/12/23 17:59 Dose: Infused Documented By: Admin: 08/12/23 09:08 Dose: 210 mls/hr Documented By: MICHAEL Multivitamins (Multivitamin Tab) 1 tab PO QAM [facility] Stop: 09/11/23 08:59 Last Admin: 08/12/23 09:08 Dose: 1 tab Documented By: MICHAEL Discontinued Medications Gabapentin (Gabapentin 600 Mg Tab) 1,200 mg PO NOW ONE Stop: 08/08/23 15:01 Last Admin: 08/08/23 15:37 Dose: 1,200 mg Documented By: ERICA Gabapentin (Gabapentin 600 Mg Tab) 600 mg PO Q6H [facility] Stop: 08/09/23 04:01 Last Admin: 08/09/23 09:38 Dose: 600 mg Documented By: Admin: 08/08/23 22:13 Dose: 600 mg Documented By: ERICA Gabapentin (Gabapentin 600 Mg Tab) 600 mg PO Q8H [facility] Stop: 08/10/23 06:01 Last Admin: 08/10/23 06:06 Dose: Not Given Documented By: Admin: 08/09/23 21:12 Dose: 600 mg Documented By: Admin: 08/09/23 16:18 Dose: Not Given Documented By: MICAHEL Gabapentin (Gabapentin 600 Mg Tab) 600 mg PO Q12H [facility] Stop: 08/11/23 06:01 Last Admin: 08/11/23 05:51 Dose: 600 mg Documented By: Admin: 08/10/23 18:01 Dose: Not Given Documented By: JAMI Gabapentin (Gabapentin 600 Mg Tab) 600 mg PO Q24H [facility] Stop: 08/12/23 06:01 Last Admin: 08/12/23 05:11 Dose: Not Given Documented By: VIDHI Sodium Chloride (Nss) 1,000 mls @ 999 mls/hr IV .Q1H1M ONE Stop: 08/08/23 12:11 Last Infusion: 08/08/23 16:26 Dose: Infused Documented By: Admin: 08/08/23 12:40 Dose: 999 mls/hr Documented By: JEISON Multivitamins 10 ml/ Thiamine HCl 100 mg/ Folic Acid 1 mg/Sodium Chloride 1,011.2 mls @ 500 mls/hr IV .Q2H2M ONE Stop: 08/08/23 13:12 Last Infusion: 08/08/23 15:14 Dose: Infused Documented By: Admin: 08/08/23 13:11 Dose: 500 mls/hr Documented By: JEISON Thiamine HCl 200 mg/ Sodium (Chloride) 52 mls @ 210 mls/hr IV QAM [facility] Stop: 09/07/23 15:14 Last Infusion: 08/09/23 19:48 Dose: Infused Documented By: Admin: 08/09/23 08:32 Dose: 210 mls/hr Documented By: Infusion: 08/08/23 16:26 Dose: Infused Documented By: Admin: 08/08/23 16:07 Dose: 210 mls/hr Documented By: ERICA Lorazepam 1 mg/ Syringe 1 mls @ 2 mls/min IV UD PRN; Protocol PRN Reason: EtOH Withdrawal AWSS Score 6,7 Stop: 09/07/23 14:59 Last Admin: 08/10/23 13:00 Dose: 2 mls/min Documented By: Admin: 08/08/23 17:58 Dose: 2 mls/min Documented By: BOBOO Lorazepam 2 mg/ Syringe 2 mls @ 2 mls/min IV UD PRN; Protocol PRN Reason: EtOH Withdrawal AWSS Score 8,9 Stop: 09/07/23 14:59 Last Admin: 08/10/23 03:11 Dose: 2 mls/min Documented By: KRT Dextrose/Sodium Chloride (D5w And Nss) 1,000 mls @ 80 mls/hr IV .[id number] [facility] Stop: 08/09/23 16:14 Last Infusion: 08/09/23 19:48 Dose: Infused Documented By: Admin: 08/09/23 08:32 Dose: 80 mls/hr Documented By: Infusion: 08/09/23 07:36 Dose: Infused Documented By: Admin: 08/08/23 19:06 Dose: 80 mls/hr Documented By: BOBOO Thiamine HCl 500 mg/ Sodium (Chloride) 55 mls @ 210 mls/hr IV Q8H [facility] Stop: 09/08/23 16:59 Last Infusion: 08/11/23 08:29 Dose: Infused Documented By: Admin: 08/11/23 08:05 Dose: 210 mls/hr Documented By: Infusion: 08/11/23 02:11 Dose: Infused Documented By: Admin: 08/11/23 01:55 Dose: 210 mls/hr Documented By: Infusion: 08/10/23 16:41 Dose: Infused Documented By: Admin: 08/10/23 16:15 Dose: 210 mls/hr Documented By: Infusion: 08/10/23 09:38 Dose: Infused Documented By: Admin: 08/10/23 08:42 Dose: 210 mls/hr Documented By: Infusion: 08/10/23 04:45 Dose: Infused Documented By: Admin: 08/10/23 01:29 Dose: 210 mls/hr Documented By: Infusion: 08/09/23 19:48 Dose: Infused Documented By: Admin: 08/09/23 17:46 Dose: 210 mls/hr Documented By: MICHAEL Sodium Chloride (Nss) 1,000 mls @ 80 mls/hr IV .[id number] [facility] Stop: 09/08/23 16:44 Last Infusion: 08/12/23 18:00 Dose: Infused Documented By: Admin: 08/12/23 01:52 Dose: 80 mls/hr Documented By: Infusion: 08/12/23 01:50 Dose: Infused Documented By: Admin: 08/11/23 13:20 Dose: 80 mls/hr Documented By: Infusion: 08/11/23 11:52 Dose: Infused Documented By: Admin: 08/10/23 23:22 Dose: 80 mls/hr Documented By: Infusion: 08/10/23 23:22 Dose: Infused Documented By: Admin: 08/10/23 16:15 Dose: 80 mls/hr Documented By: Infusion: 08/10/23 16:15 Dose: Infused Documented By: Admin: 08/10/23 06:08 Dose: 80 mls/hr Documented By: Infusion: 08/10/23 06:08 Dose: Infused Documented By: Admin: 08/09/23 17:45 Dose: 80 mls/hr Documented By: MICHAEL Thiamine HCl 250 mg/ Sodium (Chloride) 52.5 mls @ 210 mls/hr IV ONE ONE Stop: 08/11/23 21:14 Last Infusion: 08/11/23 20:26 Dose: Infused Documented By: Admin: 08/11/23 20:11 Dose: 210 mls/hr Documented By: VIDHI Lorazepam (Lorazepam 1 Mg/1 Ml Syr Ed Inj Use) 2 mg IV ONE STA Stop: 08/08/23 11:12 Last Admin: 08/08/23 11:20 Dose: 2 mg Documented By: RAMONITA Olanzapine (Olanzapine 10 Mg/2.1 Ml Sdv) 5 mg IM NOW STA Stop: 08/10/23 15:42 Last Admin: 08/10/23 15:45 Dose: Not Given Documented By: JAMI Olanzapine (Olanzapine 10 Mg/2.1 Ml Sdv) Confirm Administered Dose 10 mg IM .STK-MED ONE Stop: 08/10/23 15:44 Last Admin: 08/10/23 15:46 Dose: 5 mg Documented By: JAMI Description This is a 21 electrode EEG with a single channel dedicated to limited EKG. The electrodes were placed in accordance with the International 10-20 system. REPORT: At the onset of the EEG the patient is awake. The background is continuous and appears symmetric. The posterior dominant rhythm is not well seen. The background consist of theta activity with superimposed faster frequencies. There is frequent head turning and motion artifact. No sleep or drowsiness is seen. Interpretation IMPRESSION: This is an abnormal awake EEG due to generalized backgorund slowing suggestive of a non specific encephalopathy. No epileptiform discharges are se en.
--- NOTE | 2023-08-13 14:05 | Discharge Summary ---
Date of Service August 13, 2023 Admission HPI Per Admitting Provider 28-year-old male with unknown PMH but was being managed for alcohol abuse at retirement facility arrives from [facility] retirement facility. Patient is altered at bedside exam, information gathered from guards at bedside, ER physician, chart review, phone call with [facility]/spoke with patient's nurse at [phone]. Patient apparently was being treated for alcohol abuse with thiamine/folic a albina/meclizine/diazepam 10 mg twice daily at prior retirement facility and was moved to this current [facility] retirement facility on July 23. At this point his diazepam and meclizine were stopped. He was noted to be confused/altered on Thursday, sent to [facility] where they did found benzos positive on toxicology screen/alcohol was negative/CT abdomen pelvis and CT head was negativehe was sent back to [facility] facility with no further medical recommendation per patient's RN at [facility]. Patient was noted to be somewhat confused yesterday/progressive and worsened today and hence sent to our ED. At bedside exam, patient was able to stick his tongue out, was drowsy, could not give any history, denied any pain. Tremulousness noted. Per RN at [facility], patient's current medications are thiamine and folic acid only. Full code since patient is altered and cannot discuss CODE STATUS with him, oncoming provider to confirm with the patient tomorrow. Following day provider to explore more history from the patient including past medical history/current history/medications once the patient is more awake. We will put him n.p.o. until his mentation improves, normal saline with D5 [give thiamine before IVF with D5], can put him on clear liquid diet/advance diet as tolerated once mentation improves. Admission Exam Per Admitting Provider GENERAL: drowsy, tremulous, RA HEENT: No pallor, no icterus. Pupils equal, round and reactive to light. Oral mucosa dry. NECK: No JVD, no neck masses. HEART: S1 and S2 heard. Regular rate and rhythm. Tachy noted. No murmur, no gallop. RESPIRATORY SYSTEM: Normal AP diameter. No accessory muscle use. No wheezing, no crackles. ABDOMEN: Soft, bowel sounds present, no facial grimacing, no distention. CENTRAL NERVOUS SYSTEM: No facial droop. can't cooperate much, seen moving his extremities during exam EXTREMITIES: No edema, no erythema seen. Principal Diagnosis Altered mental status Likely benzodiazepine withdrawal Possible Wernicke's encephalopathy Discharge Exam General- oriented x3, not in distress, speaks in sentences with no effort or accessory muscle use Eyes- anicteric Neck- no JVD Lungs- clear breath sounds bilaterally, no rales/wheezes Heart- normal rate, regular rhythm; no murmurs Abdomen- normal bowel sounds, nondistended, soft, nontender Extremities- no pretibial edema, no calf tenderness Neuro- alert, oriented x 3, no New gross focal neurologic deficits Skin- warm & dry Discharge Data Allergies Allergy/AdvReac Type Severity Reaction Status Date / Time No Known Allergies Allergy Unverified 08/08/23 14:40 Consultations 08/08/23 14:16 ED Decision to Admit Stat 08/09/23 07:26 Consult Neurology Routine Ordered Studies 08/08/23 11:11 CT head/brain wo con Stat Hospital Course (1) Altered mental status: Plan Toxic encephalopathy History of alcohol abuse Possible benzo diazepam withdrawal Possible Wernicke's encephalopathy Patient was being treated for alcohol abuse with folic acid/thiamine/meclizine/diazepam 10 mg twice daily at a prior retirement facility. Patient was transferred to current retirement facility 2 weeks ago at which point his diazepam was stopped abruptly. Patient was evaluated at [facility] on Thursday for AMS at which point alcohol level was negative, benzos was positive, CT head and CT of abdomen pelvis was negative per RN at medical retirement facility. Admitting CT head and CXR with no acute finding. During the hospitalization, patient was treated with benzodiazepine withdrawal protocol. Neurology was consulted; recommended MRI brain and EEG. Despite multiple attempts; patient refused MRI brain. EEG showed generalized background slowing suggestive of nonspecific encephalopathy; no epileptiform discharges were seen. Patient was also treated with IV thiamine for possible Wernicke's encephalopathy. Patient showed signs of improvement throughout the hospitalization. At the time of the discharge, he was alert oriented x 3; not in any distress and was not agitated. He was discharged on oral thiamine and folic acid. Please note the above document was generated using voice recognition software. It may contain grammatical, syntax or spelling errors. Any formal questions or concerns about the content, text or information contained within the body of this dictation should be directly addressed to the provider for clarification Total Time Total Time Spent Total Time Spent (In Minutes): 35 Total Time Includes: Examination of the Patient, Discharge Planning, Medication Reconciliation, Communication With Other Providers and Other Discharge Plan Discharge Items Patient Disposition: [facility] Reason For Visit: AMS Discharge Diagnosis: Altered mental status Possible benzodiazepine withdrawal Possible Wernicke's encephalopathy Activity: Resume your previous activity Non-emergency contact: Primary Care Provider Call non-emergency contact if: you have any medication questions and your symptoms worsen Follow-up/Referrals: Des Noble DO [Primary Care Provider] - Diet: Regular Addtl Attending Provider Instructions: You were admitted to the hospital due to altered mental status. The likely cause for the altered mental status is benzodiazepine withdrawal. You are treated with withdrawal protocol during the hospitalization. You are also treated with thiamine for possible Wernicke's encephalopathy. Please take 100 mg of thiamine every day along with folic acid 1 mg once a day. Pending Studies at Discharge: No Stand-Alone Forms: My [employer], Smoking Cessation Skilled Items Patient informed of condition?: Yes Discharge Level of Care: Other Communicable Disease: No Discharge Prognosis: Stable Lines: None Urinary Catheter: No Medications and DC Order Prescriptions: New thiamine HCl (vitamin B1) 100 mg tablet 100 mg PO DAILY Qty: 60 0RF Continued vitamin B complex Tablet 1 tab PO DAILY folic acid 1 mg Tablet 1 mg PO DAILY Discharge Orders: Discharge Order (Routine); Ordered 08/13/23 Ordered By: Santana Sexton Admission Data Admit Date/Time: 08/08/23 15:02 Attending Provider: Santana Sexton Admit Provider: Neptali Hinojosa Primary Care Provider: Des Noble Other Providers: Neptali Hinojosa; Nicci Marie; Rafael Liu; Nicci Mayo; Des Gary; Carlos Harry; Sanya Waggoner; Herman Deras; Ly Hale; Bethel Brantley; Jos Ramírez; Jayashree Moore; Vicente Gustafson; AustenMay; Eleanor Jamil; Herman Soto Other Interventions: Discharge Summary Assessment (RN) Last Done: 08/13/23 12:28
== END 2023-08-13 14:28 | DRG 896 ==
LOC: ED 11:03 → EDINP 15:02 → SUATTDRO 15:02 → 2S 20:54
DX: Z11.52 Encounter for screening for COVID-19; G92.8 Other toxic encephalopathy; F10.10 Alcohol abuse, uncomplicated; E51.2 Wernicke's encephalopathy; F13.239 Sedative, hypnotic or anxiolytic dependence with withdrawal, unspecified